=== PATIENT | female | born 1935 | race Asian ===

== ENCOUNTER 2022-12-23 18:42 | Emergency (ER) | payer OTHER ==
[2022-12-23 18:57] VITALS: BP_SYST 131
[2022-12-23] MEDS ORDERED: ACETAMINOPHEN 325 MG TABLET PO ONE (19:15)
[2022-12-23] MEDS ORDERED: IBUPROFEN 400 MG TABLET PO ONE (21:30)
[2022-12-23] MEDS ORDERED: IBUP-2018 PO (21:33)
[2022-12-23 22:46] VITALS: BP_SYST 110
== END 2022-12-23 22:45 | disposition home or self-care (01) ==
LOC: SED 18:42
DX: S00.03XA Contusion of scalp, initial encounter (principal); F07.81 Postconcussional syndrome; I10 Essential (primary) hypertension; W01.0XXA Fall on same level from slipping, tripping and stumbling without subsequent striking against object, initial encounter; Y93.89 Activity, other specified; Y92.89 Other specified places as the place of occurrence of the external cause; Y99.8 Other external cause status
CPT/HCPCS: 70450-TC; 76376; 99284